=== PATIENT | female | born 1985 | race American Indian/Alaskan Native ===

== ENCOUNTER 2017-07-27 17:34 | Emergency (ER) | payer SELFPAY ==
[2017-07-27 18:15] VITALS: BP 128/78; PULSE 84; RESP 16; TEMP 97.9; O2SAT 99
--- NOTE | 2017-07-27 19:39 | C.PDOC ---
History Of Present Illness 32 yo female come in for evaluation of painful mass over vaginal area developed for past few days. Pt reports, " have skin tag in my vaginal area for many years. After I took bath with some herbs its became inflamed, noted some oozing ". Otherwise, pt denies fver, chills, abd. pain, N/V, UTI Sx, hematuria, denies any other active complaints. Ambulate to ED for evaluation, not in any apparent distress. Chief Complaint (Nursing): Abnormal Skin Integrity History Per: Patient Onset/Duration Of Symptoms: Gradual Current Symptoms Are (Timing): Still Present Past Medical History Reviewed: Historical Data, Nursing Documentation, Vital Signs Vital Signs: Last Vital Signs Temp 97.9 F 07/27/17 18:11 Pulse 84 07/27/17 18:11 Resp 16 07/27/17 18:11 BP 128/78 07/27/17 18:11 Pulse Ox 99 07/27/17 19:43 - Medical History PMH: No Chronic Diseases Surgical History: No Surg Hx Family History: States: No Known Family Hx - Social History Hx Alcohol Use: Yes Hx Substance Use: No - Immunization History Hx Tetanus Toxoid Vaccination: No Hx Influenza Vaccination: No Hx Pneumococcal Vaccination: No Review Of Systems Except As Marked, All Systems Reviewed And Found Negative. Constitutional: Negative for: Fever, Chills ENT: Negative for: Throat Pain Genitourinary: Negative for: Dysuria, Frequency, Incontinence, Hematuria Skin: Positive for: Lesions Neurological: Negative for: Weakness, Numbness, Altered Mental Status, Dizziness Physical Exam - Physical Exam Appears: Well, Non-toxic, No Acute Distress Skin: Normal Color, Warm, No Rash Head: Normacephalic Nose: No Discharge Oral Mucosa: Moist, No Drooling Throat: No Erythema, No Drooling Neck: Supple Gastrointestinal/Abdominal: Soft, No Tenderness, No Distention, No Guarding Back: No CVA Tenderness Pelvic: No Vaginal Bleeding, Other ((+)Right labia majora acrochordon (skin tag ) 2#2cm filled with yellow liquid (+) discahrges. NO erythema, no flactulance. ( +) slight odor.) Extremity: No Pedal Edema Neurological/Psych: Oriented x3, Normal Speech ED Course And Treatment O2 Sat by Pulse Oximetry: 99 Pulse Ox Interpretation: Normal Progress Note: On re-eval, pot is afebrile, hemodynamicaly stable. Non-toxic. Ambulatory in ED with stable gait. ABd: Benign. Pelvic: exam c/w infected skin tag to Right labia marjora, (+) self-draining. Neurologicaly intact. Preg (-). UA results review and appears normal. Pt advised on course of ds. ref. to F/u with RECOVERER in 2-3 days for re-eval. return to ED if any worsening or new changes. Disposition Counseled Patient/Family Regarding: Studies Performed, Diagnosis, Need For Followup, Rx Given - [facility]position [facility] Disposition: HOME/ ROUTINE Disposition Time: 19:30 Condition: STABLE Additional Instructions: WARM SALTY WATER SITZ BATHS 2-3 TIMES DAILY FOR 5 MINUTES TAKE MEDICATION PRESCRIBED FOLLOW UP WITH RECOVERER IN 2-3 DAYS FOR RE-EVALUATION. RETURN TO ED IF ANY WORSENING OR NEW CHANGES. Prescriptions: Doxycycline Monohydrate [Mondoxyne Nl] 100 mg PO BID #14 capsule metroNIDAZOLE 0.75% [Metrogel Cream] 1 applic VAG HS #1 tube Instructions: Abscess (ED) Forms: Eleven James (Azeri) - Clinical Impression Clinical Impression: Abscess
[2017-07-27 19:45] LABS: RBC URINE 1 /hpf (0-3); URINE BACTERIA RARE (<OCC); URINE BILIRUBIN NEGATIVE (NEGATIVE); URINE BLOOD NEGATIVE (NEGATIVE); URINE COLOR Yellow (YELLOW); URINE GLUCOSE (UA) NORMAL (Normal); URINE KETONE TRACE mg/dL (NEGATIVE); URINE LEUKOCYTE ESTERASE NEG Leu/uL (Negative); URINE PROTEIN NEGATIVE (NEGATIVE); WBC URINE < 1 /hpf (0-5)
== END 2017-07-27 19:57 | disposition home or self-care (01) ==
LOC: C.ER 17:34
DX: N76.4 Abscess of vulva (principal)